=== PATIENT | male | born 1945 | race Two or more races ===

== ENCOUNTER 2019-05-08 15:04 | Emergency (ER) | payer MEDICARE, BC ==
--- NOTE | 2019-05-08 15:21 | Emergency Department Record ---
History of Present Illness - General Chief Complaint: General Stated Complaint: LOW HEART RATE Time Seen by Provider: 05/08/19 15:05 Source: Patient Mode of Arrival: Ambulatory Limitations: No limitations - History of Present Illness Initial comments: The patient is here after being sent over from his doctors office due to being found to be in heart block 2nd degree. He has a hx of HTN and DMII and recently did have his betablocker stopped due to bradycardia. Today he had a follow up appointment with Dr. Beard and was found with a HR in the 30's. AN EKG was done and the heart block was seen. Dr. Beard then called Dr. Porras from [facility] who would accept the patient for admission when medically stabilized. The patient denies any CP, SOB, AL, weakness, lightheadedness or fevers. He also denies any recent illnesses or any new medicines. Onset/Timin -: Days(s) Quality: Other - [place] Coma Scale Eye Response: (4) Open spontaneously Motor Response: (6) Obeys commands Verbal Response: (5) Oriented [place] Total: 15 - Related Data Home Medications Medication Instructions Recorded Confirmed Last Taken Albuterol Sulfate [Albuterol 8.5 gm IH DAILY 05/08/19 05/08/19 Unknown Sulfate Hfa] Aspirin [Aspir-Low] 81 mg PO DAILY 05/08/19 05/08/19 Unknown Budesonide [Pulmicort] 0.5 mg INH DAILY 05/08/19 05/08/19 Unknown Bumetanide [Bumex] 1 mg PO DAILY 05/08/19 05/08/19 Unknown Finasteride [Proscar] 5 mg PO DAILY 05/08/19 05/08/19 Unknown Ipratropium [place] [Atrovent Hfa] 12.9 gm IH DAILY 05/08/19 05/08/19 Unknown Isosorbide Mononitrate [Imdur] 60 mg PO DAILY 05/08/19 05/08/19 Unknown Losartan Potassium [Cozaar] 50 mg PO DAILY 05/08/19 05/08/19 Unknown Magnesium Oxide 400 mg PO DAILY 05/08/19 05/08/19 Unknown Omeprazole [Prilosec] 20 mg PO DAILY 05/08/19 05/08/19 Unknown Potassium Chloride [Klor-Con] 10 meq PO DAILY 05/08/19 05/08/19 Unknown Rosuvastatin Calcium [Crestor] 10 mg PO DAILY 05/08/19 05/08/19 Unknown Tamsulosin HCl [Flomax] 0.4 mg PO DAILY 05/08/19 05/08/19 Unknown Allergies Allergy/AdvReac Type Severity Reaction Status Date / Time No Known Drug Allergies Allergy Verified 05/08/19 15:37 Review of Systems Constitutional: Denies: Chills, Fever Eyes: Denies: Eye discharge ENT: Denies: Congestion Respiratory: Denies: Cough, Dyspnea Cardiovascular: Denies: Chest pain Endocrine: Denies: Fatigue Gastrointestinal: Denies: Nausea Genitourinary: Denies: Dysuria Musculoskeletal: Denies: Arthralgia Physical Exam - General General Appearance: Alert, Oriented x3, Cooperative, No acute distress - Head Head exam: Atraumatic, Normocephalic, Normal inspection - Eye Eye exam: Normal appearance, PERRL - ENT Throat exam: Normal inspection. negative: Tonsillar erythema, Tonsillar exudate - Neck Neck exam: Normal inspection, Full ROM. negative: Tenderness - Respiratory Respiratory exam: Normal lung sounds bilaterally. negative: Respiratory distress - Cardiovascular Cardiovascular Exam: Regular rate, Normal rhythm, Normal heart sounds, Bradycardia - GI/Abdominal GI/Abdominal exam: Soft, Normal bowel sounds. negative: Tenderness - Extremities Extremities exam: Normal inspection, Full ROM, Normal capillary refill. negative: Tenderness - Back Back exam: Reports: Normal inspection - Neurological Neurological exam: Alert, Normal gait, Oriented X3. negative: Abnormal gait, Altered, Motor sensory deficit - Skin Skin exam: negative: Rash Course - Reevaluation(s) Reevaluation #1: The patient is doing very well at this time. He denies any complaints. I did discuss the case with Dr. Porras (Cardiology) and he would like to consult on the patient and have him admitted to Internal Med. 05/08/19 15:55 Reevaluation #2: The patient is doing very well at this time. I did discuss the case with Dr. Zhao at [facility] and she does accept the patient for admission. 05/08/19 16:08 Medical Decision Making - Data Complexity MDM Data: Labs Ordered and/or Reviewed, X-Ray Ordered and/or Reviewed, EKG Ordered and/or Reviewed - Lab Data Result diagrams: 05/08/19 15:20 05/08/19 15:20 - EKG Data -: EKG Interpreted by Me EKG: Abnormal EKG (2:1 2nd degree heart block.) - Radiology Data Radiology results: Report reviewed (CXR: CMG with mild CHF.) Disposition Disposition: Transfer Clinical Impression: Heart block AV second degree Disposition: Acute Care Hospital Transfer Transfer To: [facility] Reason For Transfer: Cardiology Accepting Physician: Cece Time Discussed w/Accepting Physician: 16:09 Condition: (2) Stable Forms: Patient Portal Access Time of Disposition: 16:09 Quality - Quality Measures Quality Measures: N/A - Blood Pressure Screening View Details: Yes Does Patient Have Any of the Following: Active Dx of HTN Blood Pressure Classification: Hypertensive Reading Systolic Measurement: 156 Diastolic Measurement: 95 Screening for High Blood Pressure: Patient Exclusion, Hx of HTN [G9744]
[2019-05-08 15:26] LABS: ABSOLUTE NEUTROPHIL COUNT 3.57; BASO % 0.4 % (0-6); EOS % 7.3 % (0-6); GRAN % 49.8 % (47-80); HEMATOCRIT 42.4 % (42.0-52.0); HEMOGLOBIN 13.5 gm/dl (14.0-18.0); LYMPH % 34.1 % (16-45); MEAN CELL VOLUME 96.8 fl (81-97); MEAN CORPUSCULAR HEMOGLOBIN 30.8 pg (27-33); MEAN CORPUSCULAR HGB CONC 31.8 g/dl (32-36); MEAN PLATELET VOLUME 10.9 fl (7.4-10.4); MONO % 8.4 % (0-9); PLATELET COUNT 173 K/uL (130-400); RED BLOOD COUNT 4.38 M/uL (4.40-5.70); RED CELL DISTRIBUTION WIDTH 14.2 % (11.5-14.5); WHITE BLOOD COUNT W/O DIFF 7.2 K/uL (4.2-12.2)
[2019-05-08 15:40] LABS: BILIRUBIN,TOTAL 1.5 mg/dL (0.2-1.0); CREATININE 1.6 mg/dL (0.7-1.2); INR 1.2; PARTIAL THROMBOPLASTIN TIME 26.3 SECONDS (24.5-39.1); PROTHROMBIN TIME (PATIENT) 11.8 SECONDS (9.5-12.1)
[2019-05-08 15:41] LABS: TOTAL PROTEIN 8.5 g/dL (6.6-8.7)
[2019-05-08 15:46] LABS: ALB/GLOB RATIO 1.2 (1.1-1.8); ALBUMIN 4.7 g/dL (4.0-5.0)
[2019-05-08 15:58] LABS: THYROID STIMULATING HORMONE 3.09 uIU/mL (0.270-4.20)
--- NOTE | 2019-05-08 16:28 | RADIOLOGY REPORT ---
EXAMINATION: Single View Chest EXAM DATE: 05/08/2019 4:16 PM TECHNIQUE: Portable AP upright chest radiography obtained 05/08/2019 4:08 PM INDICATION: bradycardia COMPARISON: None. FINDINGS: There is cardiomegaly and the pulmonary vasculature appears mildly prominent in size. There are no si zable pleural effusions and findings compatible with patchy areas of atelectasis or edema without def inite acute pulmonary infiltrates. There are postoperative changes and bony degenerative features. IMPRESSION: Cardiomegaly and mild pulmonary vascular congestion. Probable patchy areas of atelectasis/edema without definite acute pulmonary infiltrates and no sizabl e pleural effusions. No prior examination currently available for comparison. Dictated by: Robert Hernandez MD on 05/08/2019 4:23 PM. .
[2019-05-08] MEDS: FUROSEMIDE IV 40MG/4ML VIAL IVP ONE (16:52)
== END 2019-05-08 16:54 | disposition short-term general hospital (02) ==
LOC: ER 15:04
DX: I44.1 Atrioventricular block, second degree (principal); I10 Essential (primary) hypertension; E11.9 Type 2 diabetes mellitus without complications; Z87.891 Personal history of nicotine dependence
CPT/HCPCS: 71045; 80053; 83880; 84443; 84484; 85025; 85610; 85730; 93005; 93010; 96374; 99285; J1940